=== PATIENT | female | born 1995 | race Caucasian/White ===

== ENCOUNTER 2022-07-25 09:59 | Emergency (ER) | payer OTHER, SELFPAY ==
[2022-07-25 10:01] VITALS: BP 136/88; PULSE 81; RESP 17; TEMP 36.3; O2SAT 99
--- NOTE | 2022-07-25 10:33 | ED.GENADULT ---
HPI - General Adult General Chief complaint: Unspecified Stated complaint: ST, swelling Time Seen by Provider: 07/25/22 10:15 History of Present Illness HPI narrative: 27-year-old female here for evaluation of sore throat, sensation of foreign body in the back of her throat since waking up this morning. Patient denies known foreign body in throat. She has an allergy to shellfish but denies exposure, no other symptoms. Also notes nausea and gagging but no vomiting this morning. No fevers, chills, sick contacts. She has received all of her childhood vaccinations. Related Data Allergies Allergy/AdvReac Type Severity Reaction Status Date / Time iodine Allergy Severe Swelling Verified 08/28/19 13:56 of Lip/Tongue/Throat Penicillins Allergy Unknown Hives Verified 08/28/19 13:56 SHELLFISH Allergy Severe Swelling Uncoded 08/28/19 13:56 of Lip/Tongue/Throat Review of Systems Review of Systems: Gen: Denies fevers or chills Eyes: Denies eye pain or visual change ENT: Reports sore throat. Denies congestion Respiratory: Denies shortness of breath or cough CV: Denies chest pain or palpitations GI: Denies abdominal pain nausea, emesis or diarrhea : denies burning, urgency, frequency or hematuria Musculoskeletal: Denies back pain or muscle pain Neuro: Denies numbness, tingling, weakness or focal weakness Skin: Denies rash Except as documented, all other systems reviewed and negative Exam Narrative: APPEARANCE: Well appearing, no pain in distress, well-nourished. Head: Normocephalic and atraumatic. EYES: PERRLA/EOMI, conjunctivae clear NOSE: No nasal drainage EARS: External ear normal in appearance THROAT: Uvula is swollen in appearance. Tonsils are surgically absent. NECK: Full range of motion in neck. Supple. No adenopathy, no masses. RESPIRATORY: Airway patent, respirations nonlabored. Clear to auscultation bilaterally, no rales, rhonchi, wheezing. CARDIOVASCULAR: Regular rate and rhythm without murmurs, rubs, or gallops. ABDOMINAL: Normoactive bowel sounds. Soft, nontender, nondistended. No rebound tenderness or guarding. MUSCULOSKELETAL: Extremities are warm and well-perfused. Moves all extremities well. No edema. NEURO: Normal speech. No focal neurologic deficits. SKIN: Skin is warm and dry. No rashes. PSYCHIATRIC: Normal affect/mood. Course Vital Signs Vital signs: Vital Signs Temperature 97.3 F L 07/25/22 10:01 Pulse Rate 81 07/25/22 10:01 Respiratory Rate 17 07/25/22 10:01 Blood Pressure 136/88 07/25/22 10:01 Pulse Oximetry 99 07/25/22 10:01 Oxygen Delivery Room Air 07/25/22 10:01 Temperature 97.3 F L 07/25/22 10:01 Pulse Rate 81 07/25/22 10:01 Respiratory Rate 17 07/25/22 10:01 Blood Pressure 136/88 07/25/22 10:01 Pulse Oximetry 99 07/25/22 10:01 Oxygen Delivery Room Air 07/25/22 10:01 Medical Decision Making MDM Narrative Medical decision making narrative: 27-year-old female here for evaluation of a sore throat and gagging sensation today. She is nontoxic-appearing, tolerating her secretions, no respiratory distress. She has evidence of uvulitis on physical exam. She was given Decadron in the ED with improvement of her symptoms. Her tonsils are surgically absent. Suspect viral etiology. No stridor or vocal changes to suggest epiglottitis. She be discharged home to follow-up with her primary care doctor and she was given steroids to take as an outpatient. She was given strict return precautions and she voiced understanding. Vital Signs Vital Signs: Vital Signs Temperature 97.3 F L 07/25/22 10:01 Pulse Rate 81 07/25/22 10:01 Respiratory Rate 17 07/25/22 10:01 Blood Pressure 136/88 07/25/22 10:01 Pulse Oximetry 99 07/25/22 10:01 Oxygen Delivery Room Air 07/25/22 10:01 Temperature 97.3 F L 07/25/22 10:01 Pulse Rate 81 07/25/22 10:01 Respiratory Rate 17 07/25/22 10:01 Blood Pressure 136/88 07/25/22 10:01
== END 2022-07-25 12:16 | disposition home or self-care (01) ==
PROVIDERS: Emergency Provider Physician Assistant; PCP Physician Assistant
DX: K12.2 Cellulitis and abscess of mouth (principal)
CPT/HCPCS: 96372; 99283; J1100

== ENCOUNTER 2022-08-07 11:34 | Outpatient (CLI) | payer OTHER, SELFPAY ==
[2022-08-07 12:45] LABS: HIV 1/2 Ab P24 Ag Result Negative (Negative)
[2022-08-07 13:50] LABS: Hepatitis B Surface Antigen Negative (Negative)
[2022-08-07 13:55] LABS: HAV RESULT Negative (Negative); Hepatitis B Core IgM Result Negative (Negative)
[2022-08-07 14:07] LABS: Hepatitis C Virus Antibody Negative (Negative)
[2022-08-10 10:01] LABS: Rapid Plasma Reagin Non-Reactive (NonReactive)
== END 2022-08-07 11:35 | disposition home or self-care (01) ==
LOC: ANHLAB 11:37
PROVIDERS: PCP Physician Assistant; Visit Provider Student in an Organized Health Care Education/Training Program
DX: Z20.2 Contact with and (suspected) exposure to infections with a predominantly sexual mode of transmission (principal)
CPT/HCPCS: 36415; 80074; 86592; 86695; 86696; 86703; G0432

== ENCOUNTER 2022-11-26 11:58 | Emergency (ER) | payer OTHER, SELFPAY ==
[2022-11-26 11:58] VITALS: BP 130/88; PULSE 87; RESP 16; TEMP 36.6; O2SAT 98
[2022-11-26 13:09] LABS: Basophils Absolute Auto 0.1 K/mm3 (0.0-0.1); Basophils Percent Auto 0.5 % (0.2-1.2); Eosinophils Absolute Auto 0.2 K/mm3 (0-0.3); Eosinophils Percent Auto 1.4 % (0-4.4); Hematocrit 36.7 % (37.0-47.0); Hemoglobin 11.2 g/dL (12.0-15.0); Immature Granulocyte Absolute 0.04 K/mm3 (0.00-0.031); Immature Granulocyte Percent A 0.3 % (0-0.5); Lymphocytes Absolute Auto 3.27 K/mm3 (0.9-3.2); Lymphocytes Percent Auto 26.5 % (18.3-44.2); Mean Corpuscular HGB Conc 30.5 g/dl (32-36); Mean Corpuscular Hemoglobin 26.9 pg (26-34); Mean Platelet Volume 10.8 fl (7.4-10.4); Monocytes Absolute Auto 0.5 K/mm3 (0.1-0.6); Monocytes Percent Auto 4.1 % (2.6-8.5); Neutrophils Absolute Auto 8.3 K/mm3 (1.3-6.7); Neutrophils Percent Auto 67.2 % (45.5-73.1); Platelet Count Result 271 k/mm3 (150-375); Red Blood Count 4.17 M/mm3 (4.2-5.4); Red Cell Distribution Width 13.2 % (11.5-14.5); White Blood Count 12.3 K/mm3 (4.5-10.0)
[2022-11-26 13:11] LABS: Pregnancy On Board Control Positive; Urine Pregnancy Test Negative
[2022-11-26 13:13] LABS: Bacteria Urine 1+ /hpf; Non Pathogenic Casts 0-2; RBC Urine >100 /hpf (0-2); Squamous Epithelial Cell Urine Few /hpf (Few)
[2022-11-26 13:19] LABS: Bilirubin Urine Negative (Negative); Blood Urine 3+ (Negative); Color Urine Orange (Yellow); Glucose Urine UA Negative (Negative); Ketones Urine Negative (Negative); Leukocyte Esterase Ur Trace LEU/UL (Negative); Nitrate Urine Negative (Negative); Protein Urine 2+ mg/dL (Negative); Specific Grav Ur 1.019 (1.001-1.035); Urobilinogen Urine 0.2 mg/dL (<2.0); pH Urine 5.5 (5.0-9.0)
[2022-11-26 13:20] LABS: Add Urine Microscopic? YES; Appearance Urine Slightly Cloudy (Clear)
[2022-11-26 13:36] LABS: Beta HCG Quantitative < 2.39 mIU/ML
--- NOTE | 2022-11-26 14:43 | ED.GENADULT ---
HPI - General Adult General Chief complaint: Vaginal Bleeding Stated complaint: poss miscarriage Time Seen by Provider: 11/26/22 12:41 Source: RN notes reviewed History of Present Illness HPI narrative: Patient presents emergency department from home for vaginal bleeding. Patient states that she began to have some vaginal bleeding last evening that progressed in this morning. She states she passed 2 blood clots this morning and to become concerned and called her [employer] Dr. Sanabria who recommended she come to the ER for further evaluation. Patient states that the bleeding has improved at this time. She states her last menstrual cycle was November 02 so she was concerned that she could possibly be having a miscarriage however she has not taken a home test and does not have any known current . She denies having any abdominal pain or cramping she denies any fevers or chills or any other symptom Related Data Allergies Allergy/AdvReac Type Severity Reaction Status Date / Time iodine Allergy Severe Swelling Verified 10/30/22 10:02 of Lip/Tongue/Throat Penicillins Allergy Intermediate Hives Verified 10/30/22 10:02 SHELLFISH Allergy Severe Swelling Uncoded 10/30/22 10:02 of Lip/Tongue/Throat Review of Systems Review of Systems: Gen.: Denies fevers or chills Respiratory: Denies shortness of breath or cough CV: Denies chest pain or palpitations GI: Denies abdominal pain nausea, emesis or diarrhea see HPI Musculoskeletal: Denies back pain or muscle pain Neuro: Denies numbness, tingling, weakness or focal weakness Skin: Denies rash Except as documented, all other systems reviewed and negative [facility] Past Medical History Medical History Exposure to sexually transmitted disease (STD) Surgical History Surgical History History of hip surgery Family History Family History Grandparent Heart disease Other Diabetes mellitus Hypertension Social History Social History Smoking status: Never smoker Alcohol intake: never Substance use: never Living arrangements: with family Occupation/Education: occupation Gender identity (if verbalized by the patient): Female Sexual Orientation (if Verbalized by the Patient): Straight or Heterosexual Exam Narrative: APPEARANCE: No acute distress, nontoxic, resting in bed EYES: EOMI HEENT: Normocephalic, atraumatic, OMM RESPIRATORY: No respiratory distress Clear to auscultation bilaterally with no rhonchi wheezing or rales. CARDIOVASCULAR: Regular rate and rhythm without murmurs rubs or gallops. ABDOMINAL: Soft, nontender, nondistended, no rebound or guarding MUSCULOSKELETAl: Moves all extremities. No clubbing, cyanosis or edema. NEURO: Awake and alert. Following commands, speech normal, no focal deficits SKIN:: Warm, dry. No rashes lesions or abrasions PSYCHIATRIC: Normal affect/mood, Course Course Emergency Course: Called discussed with Dr. Jaramillo for Dr. Sanabria at this time feels patient may be discharged home with follow-up as outpatient Discussed with patient results of workup and diagnosis. Discussed need for follow-up with primary care, proper use of medication, and reasons to return to the emergency department. Patient understands and agrees to current treatment plan Vital Signs Vital signs: Vital Signs Temperature 97.8 F 11/26/22 11:58 Pulse Rate 87 11/26/22 11:58 Respiratory Rate 16 11/26/22 11:58 Blood Pressure 130/88 11/26/22 11:58 Pulse Oximetry 98 11/26/22 11:58 Temperature 97.8 F 11/26/22 11:58 Pulse Rate 87 11/26/22 11:58 Respiratory Rate 16 11/26/22 11:58 Blood Pressure 130/88 11/26/22 11:58 Pulse Oximetry 98 11/26/22 11:58 Medical Decision Making MDM
[2022-11-26] MEDS: NITROFURANTOIN MONOHYD MACROCR 100 MG CAP PO (14:54)
== END 2022-11-26 15:05 | disposition home or self-care (01) ==
PROVIDERS: Emergency Medicine; Emergency Provider Emergency Medicine; PCP Physician Assistant
DX: N93.8 Other specified abnormal uterine and vaginal bleeding (principal); N39.0 Urinary tract infection, site not specified
CPT/HCPCS: 36415; 81001; 81025; 84702; 85025; 87086; 99283; A9270

== ENCOUNTER 2022-12-03 10:39 | Outpatient (CLI) | payer OTHER, SELFPAY ==
[2022-12-03 11:40] LABS: Hemoglobin A1C 8.1 % (<5.7)
[2022-12-09 05:51] LABS: FSH 6.3 mIU/mL (***); Progesterone 0.2 ng/mL (***)
[2022-12-09 12:48] LABS: Testosterone Total 20 ng/dL (2-45)
[2022-12-09 14:34] LABS: Anti Mullerian Hormone,Female 1.66 ng/mL (0.69-13.39)
[2022-12-11 01:42] LABS: Estradiol, Ultrasensitive 112 pg/mL
== END 2022-12-03 10:40 | disposition home or self-care (01) ==
PROVIDERS: PCP Physician Assistant; Visit Provider Student in an Organized Health Care Education/Training Program
DX: N91.2 Amenorrhea, unspecified (principal)
CPT/HCPCS: 36415; 82670; 83001; 83002; 83036; 84144; 84403; 84443

== ENCOUNTER 2023-12-07 17:37 | Emergency (ER) | payer OTHER, SELFPAY ==
[2023-12-07 17:53] VITALS: BP 130/90; PULSE 105; RESP 16; TEMP 37.2; O2SAT 97
--- NOTE | 2023-12-07 18:16 | ED.URI ---
HPI - URI/Sore Throat General Chief Complaint: Upper Respiratory Infection Stated Complaint: Bodyaches/Cough Time Seen by Provider: 12/07/23 18:05 Source: patient Mode of arrival: ambulatory Limitations: no limitations History of Present Illness HPI Narrative: 28 year old female [facility] with complaints of cough, sinus congestion and low grade fevers and body aches since yesterday. Patient reports that she has coughed so hard she has thrown up mucous and her sides and ribs hurt. Patient reports that she has taken Tylenol and Ibuprofen for her symptoms and has used cough syrup with no improvement. Patient denies any shortness of breath, no tachypnea or retractions, lungs clear to auscultation. MD elicited complaint: fever, cough, rhinorrhea, nasal congestion and other (body aches) Onset (ago): day(s) (day 2 of symptoms) Severity: moderate Able to tolerate fluids by mouth: Yes Treatments prior to arrival: acetaminophen, ibuprofen and other (cough syrup) Related Data Allergies Allergy/AdvReac Type Severity Reaction Status Date / Time iodine Allergy Severe Swelling Verified 04/13/23 15:06 of Lip/Tongue/Throat Penicillins Allergy Intermediate Hives Verified 04/13/23 15:06 SHELLFISH Allergy Severe Swelling Uncoded 04/13/23 15:06 of Lip/Tongue/Throat Review of Systems Review of Systems: CONSTITUTIONAL: Reports malaise, chills, sweats, or fever. EYES: Denies visual changes, redness, or discharge. ENT: Reports rhinorrhea, congestion, sinus pain,no otalgia and no sore throat. CARDIOVASCULAR: Denies chest pain, palpitations, or edema. RESPIRATORY: Reports cough.? Denies dyspnea. harsh cough GASTROINTESTINAL: Denies abdominal pain, nausea, vomiting, diarrhea SKIN: Denies rash or itching. MUSCULOSKELETAL:reports myalgia. NEUROLOGIC: Denies headache. All systems reviewed & are unremarkable except as noted in HPI and below PMFSH Past Medical History Medical History (Updated 12/09/23 @ 09:57 by Veronica Leo NP) Exposure to sexually transmitted disease (STD) Obesity Pre-diabetes Surgical History Surgical History (Updated 12/09/23 @ 09:55 by Veronica Leo NP) History of hip surgery History of tonsillectomy and adenoidectomy Family History Family History Grandparent Heart disease Other Diabetes mellitus Hypertension Social History Social History Smoking status: Never smoker Alcohol intake: never Substance use: never Living arrangements: with family Occupation/Education: occupation Gender identity (if verbalized by the patient): Female Sexual Orientation (if Verbalized by the Patient): Straight or Heterosexual Comments At time of signature, agree with nursing past medical, surgical, social and family history. There is no relevant family history pertinent to the presenting complaint Exam Narrative: GENERAL: Well-appearing, well-nourished, and in no acute distress. HEAD: Normocephalic EYES: PERRLA, conjunctivae clear ENT: Nares clear, turbinates edematous and erythematous, clear discharge.sinus pressure. Mucous membranes moist. TM pearly hammer with dull light reflex bilaterally; no tragal tenderness. Oropharynx erythematous without lesions. Tonsils not present and throat without exudate, no drooling, no hoarseness, no trismus, uvula midline. NECK: Supple. No lymphadenopathy CHEST: Clear to auscultation, breath sounds equal. No wheezing, rhonchi, rales, or stridor. No respiratory distress, speaks in full sentences.harsh frequent cough SAO2 97% on room air HEART: Regular rate and rhythm. No murmur heard. SKIN: Warm, dry, no rash. NEURO: Alert and oriented x3. PSYCH: Normal mood and affect Course Course Emergency Course: Patient is aware of diagnosis, understands and agrees to treatment plan.? Anticipatory josiane
== END 2023-12-07 18:34 | disposition home or self-care (01) ==
PROVIDERS: Emergency Provider Registered Nurse; PCP Physician Assistant
DX: J06.9 Acute upper respiratory infection, unspecified (principal); Z20.822 Contact with and (suspected) exposure to COVID-19; R73.03 Prediabetes; E66.9 Obesity, unspecified; Z68.38 Body mass index [BMI] 38.0-38.9, adult
CPT/HCPCS: 87426; 87804; 99213; G0463

== ENCOUNTER 2024-05-11 15:27 | Emergency (ER) | payer OTHER, SELFPAY ==
--- NOTE | ~2024-05-11 | XR_ITS ---
XR knee LT min 4V Ordering provider: Martell Garcia PA-C History: . FALL . Comparison: None. FINDINGS: BONES: No acute fracture or dislocation. Bone island in the distal femur versus ossifying fibroma. JOINT SPACES: Normal. SOFT TISSUES: Normal. IMPRESSION: No acute osseous abnormality left knee. Bone island versus ossifying fibroma in the distal femur. Reviewed, dictated and finalized at location A.
[2024-05-11 15:29] VITALS: BP 142/80; PULSE 87; RESP 15; TEMP 36.8; O2SAT 100
[2024-05-11 17:30] VITALS: BP 124/78; PULSE 80; RESP 18; TEMP 37; O2SAT 99
--- NOTE | 2024-05-11 17:34 | ED.LOWEXIN ---
HPI - Extremity Injury (Lower) General Chief Complaint: Extremity Injury, Lower Stated Complaint: fell and landed on R knee Time Seen by Provider: 05/11/24 17:03 Source: patient Mode of arrival: ambulatory Limitations: no limitations History of Present Illness HPI Narrative: This is a 29-year-old female who presents to the ED with chief complaint of left knee pain after an injury at work. Reports that she tripped over piece of wheelchair and landed on her knee. Since then is very difficult to bear weight. Denies any further sites of pain or injury. Denies numbness or weakness. Related Data Allergies Allergy/AdvReac Type Severity Reaction Status Date / Time iodine Allergy Severe Swelling Verified 05/11/24 15:28 of Lip/Tongue/Throat Penicillins Allergy Intermediate Hives Verified 05/11/24 15:28 SHELLFISH Allergy Severe Swelling Uncoded 05/11/24 15:28 of Lip/Tongue/Throat Review of Systems Review of Systems: All systems as dictated in HPI [facility] Past Medical History Medical History Exposure to sexually transmitted disease (STD) Obesity Pre-diabetes Surgical History Surgical History History of hip surgery History of tonsillectomy and adenoidectomy Family History Family History Grandparent Heart disease Other Diabetes mellitus Hypertension Social History Social History (Updated 04/17/24 @ 09:04 by Scarlett Duenas CMA) Smoking status: Never smoker Alcohol intake: never Substance use: never Do You Feel Safe in your Home?: Yes Lack of Transportation: No Lack of Food: Never True Current Housing: I Have Housing Concerned About Future Housing: No Difficulty Paying Gas/Electric Bills: No Difficulty Paying for Meds: No Currently Unemployed: No Education: High School Diploma/GED Difficulty w/ Childcare or Family Care: No Living arrangements: with family Occupation/Education: occupation Gender identity (if verbalized by the patient): Female Sexual Orientation (if Verbalized by the Patient): Straight or Heterosexual Exam Narrative: GENERAL: Well-appearing, well-nourished, and in no acute distress. HEAD: Normocephalic, atraumatic. EYES: PERRLA and EOMI. ENT: Nares clear, no rhinorrhea or epistaxis. Mucous membranes moist. Oropharynx without tonsillar hypertrophy exudate or other lesions. NECK: Supple. No adenopathy or masses. CHEST: No respiratory distress. Clear to auscultation. No wheezes rales or rhonchi HEART: Regular rate and rhythm. No murmur heard. Normal peripheral pulses. ABDOMEN: Soft, nontender, nondistended, normal active bowel sounds. MSK: LLE: Tenderness along the lateral joint line of left knee. No deformity. Neurovascularly intact distally. Able to actively extend the knee. RLE: Benign SKIN: Warm, dry, no rash. NEURO: Alert and oriented x4. No focal deficits. PSYCH: Normal mood and affect. Course Vital Signs Vital signs: Vital Signs Temperature 98.2 F 05/11/24 15:29 Pulse Rate 87 05/11/24 15:29 Respiratory Rate 15 05/11/24 15:29 Blood Pressure 142/80 H 05/11/24 15:29 Pulse Oximetry 100 05/11/24 15:29 Oxygen Delivery Room Air 05/11/24 15:29 Temperature 98.2 F 05/11/24 15:29 Pulse Rate 87 05/11/24 15:29 Respiratory Rate 15 05/11/24 15:29 Blood Pressure 142/80 H 05/11/24 15:29 Pulse Oximetry 100 05/11/24 15:29 Oxygen Delivery Room Air 05/11/24 15:29 MDM - Extremity Injury (Lower) MDM Narrative Medical decision making narrative: This is a 29-year-old female who presents to the ED with chief complaint of left knee pain after injury today. Vitals are normal. Exam is benign. X-rays show incidental fibroma but no other acute osseous findings. She was given knee immobilizer and crutches due to difficulty with a
[2024-05-11] MEDS: ACETAMINOPHEN 500 MG TABLET 1000 MG PO (18:13)
[2024-05-11] MEDS: IBUPROFEN 400 MG TABLET 800 MG PO (18:13)
== END 2024-05-11 18:33 | disposition home or self-care (01) ==
LOC: ANHED 18:03
PROVIDERS: Emergency Provider Physician Assistant; PCP Physician Assistant
DX: S89.92XA Unspecified injury of left lower leg, initial encounter (principal); E66.9 Obesity, unspecified; Z68.41 Body mass index [BMI] 40.0-44.9, adult; R73.03 Prediabetes; R93.6 Abnormal findings on diagnostic imaging of limbs; W18.09XA Striking against other object with subsequent fall, initial encounter
CPT/HCPCS: 73564; 99283; A9270